=== PATIENT | female | born 1955 | race Caucasian/White ===

== ENCOUNTER 2020-03-15 11:12 | Emergency (ER) | payer OTHER ==
[~2020-03-15] VITALS: Ht 172.7 cm; Wt 68.0 kg
[2020-03-15 11:27] VITALS: Ht 172.7 cm; Wt 68.0 kg
[2020-03-15 11:57] LABS: BASOPHIL % 0.1 % (0-2)
[2020-03-15 12:01] LABS: PLATELET COUNT 430 x10^3mcL (130-400); RED CELL DISTRIBUTION WIDTH 22.3 % (11.5-14.5)
[2020-03-15 12:11] LABS: CALCIUM 7.8 mg/dL (8.5-10.1); CARBON DIOXIDE 27.3 mmol/L (21-32); CHLORIDE SERUM 105 mmol/L (98-107); CREATININE SERUM 0.5 mg/dL (0.6-1.0); GFR1 > 60 mL/min; GLUCOSE SERUM 87 mg/dL (74-106); POTASSIUM SERUM 3.2 mmol/L (3.5-5.1); SODIUM SERUM 138 mmol/L (136-145)
[2020-03-15 12:16] LABS: ALBUMIN 1.3 g/dL (3.4-5.0); ALKALINE PHOSPHATASE 677 U/L (46-116); ALT/SGPT 43 U/L (14-59); AST/SGOT 65 U/L (15-37); BILIRUBIN TOTAL 1.19 mg/dL (0.20-1.00); TOTAL PROTEIN, SERUM 6.2 g/dL (6.4-8.2)
[2020-03-15 12:45] LABS: rbc morphology (normal/abnorm) ABNORMAL (NORMAL)
[2020-03-15 19:09] VITALS: BP 111/57
== END 2020-03-15 19:09 | disposition home or self-care (01) ==
LOC: ED 11:12
PROVIDERS: Student in an Organized Health Care Education/Training Program
DX: E16.2 Hypoglycemia, unspecified (principal); I10 Essential (primary) hypertension; Z85.05 Personal history of malignant neoplasm of liver; Z90.49 Acquired absence of other specified parts of digestive tract
CPT/HCPCS: 82962; J7030

== ENCOUNTER 2020-06-03 12:44 | Inpatient (IN) | payer OTHER ==
[~2020-06-03] VITALS: Ht 157.5 cm; Wt 54.4 kg
[~2020-06-03 12:44] MED LIST: CYMBALTA20 M1 PO; NOVAPLUS L40 MG/0.4 SC; NOVAPLUS ZOSYN1 PD1 IV; TOPIRAMATE100 M1 PO
[2020-06-03 12:46] VITALS: Ht 157.5 cm; Wt 54.4 kg
[2020-06-03] MEDS ORDERED: NOVOLOG FLEX100 U/M1 SQ (12:59)
[2020-06-03] MEDS ORDERED: BASAGLAR K100 UNIT/1 SQ (13:00)
[2020-06-03] MEDS ORDERED: FEROSUL325 MG PO (13:01)
[2020-06-03] MEDS ORDERED: DULOXETINE HYDR20 MG PO (13:02)
[2020-06-03] MEDS ORDERED: ELIQUIS5 MG PO (13:03)
[2020-06-03] MEDS ORDERED: DURAGESIC1 EAC1 TD (13:07)
[2020-06-03] MEDS ORDERED: LIDODERM51 TD (13:08)
[2020-06-03] MEDS ORDERED: MEGL PO (13:09)
[2020-06-03] MEDS ORDERED: MULTI-VITAMIN W1 TAB PO (13:10)
[2020-06-03] MEDS ORDERED: PANTOPRAZOLE SO20 M1 PO (13:10)
[2020-06-03] MEDS ORDERED: METHADONE HC10 MG/M3 PO (13:10)
[2020-06-03] MEDS ORDERED: MIRALAX17 GM PO (13:11)
[2020-06-03] MEDS ORDERED: SENNA8.6 M2 PO (13:11)
[2020-06-03] MEDS ORDERED: ARGINAID POWDE1 EACH PO (13:13)
[2020-06-03] MEDS ORDERED: ZINC SULFATE220 M2 PO (13:13)
[2020-06-03] MEDS ORDERED: DULCOLAX10 M1 PR (13:14)
[2020-06-03] MEDS ORDERED: GLUCAGON EMERGEN1 MG IM (13:15)
[2020-06-03] MEDS ORDERED: MOM PO (13:16)
[2020-06-03] MEDS ORDERED: DEX4 GLUCOSE15 GM PO (13:16)
[2020-06-03] MEDS ORDERED: VENELEX TOP (13:17)
[2020-06-03] MEDS ORDERED: DILAUDID2 MG PO (13:17)
[2020-06-03] MEDS ORDERED: DESITIN113 GM TOP (13:18)
[2020-06-03 13:27] LABS: BASOPHIL % 0.2 % (0.2-1.3)
[2020-06-03 13:31] LABS: PLATELET COUNT 409 x10^3mcL (179-408); RED CELL DISTRIBUTION WIDTH 16.4 % (12.3-17.7)
[2020-06-03 13:32] LABS: rbc morphology (normal/abnorm) ABNORMAL (NORMAL)
[2020-06-03 13:38] LABS: CALCIUM 7.1 mg/dL (8.5-10.1); CARBON DIOXIDE 16.2 mmol/L (21-32); CHLORIDE SERUM 106 mmol/L (98-107); CREATININE SERUM 1.1 mg/dL (0.6-1.0); GFR1 53 mL/min; GLUCOSE SERUM 96 mg/dL (74-106); POTASSIUM SERUM 3.8 mmol/L (3.5-5.1); SODIUM SERUM 134 mmol/L (136-145)
[2020-06-03 13:43] LABS: ALKALINE PHOSPHATASE 168 U/L (46-116); ALT/SGPT 18 U/L (14-59); AST/SGOT 39 U/L (15-37); BILIRUBIN TOTAL 2.32 mg/dL (0.20-1.00)
[2020-06-03 14:02] LABS: ALBUMIN 0.7 g/dL (3.4-5.0); TOTAL PROTEIN, SERUM 4.6 g/dL (6.4-8.2)
[2020-06-03 15:43] LABS: UA SPECIFIC GRAVITY 1.025 (1.005-1.035); microscopic required? YES; urine erythrocyte 1+ (NEGATIVE)
[2020-06-03] MEDS ORDERED: XELODA150 MG PO (16:24)
[2020-06-03 20:28] LABS: T3 TOTAL 0.41 ng/mL
[2020-06-03 20:56] LABS: CHOLESTEROL/HDL RATIO 15.8
[2020-06-03 21:00] LABS: FREE T4 1.07 ng/dL (0.76-1.46); FREE THYROXINE INDEX 2.1 ug/dL (1.4-4.5); T4(THYROXINE) 5.3 ug/dL (4.7-13.3)
[2020-06-04] MEDS ORDERED: LOVENOX30 MG/0.3 (04:45)
[2020-06-04 09:57] LABS: BASOPHIL % 0.2 % (0.2-1.3)
[2020-06-04 10:26] LABS: CALCIUM 7.6 mg/dL (8.5-10.1); CARBON DIOXIDE 16.1 mmol/L (21-32); CREATININE SERUM 1.2 mg/dL (0.6-1.0); MAGNESIUM 1.7 mg/dL (1.8-2.4); PHOSPHOROUS 6.2 mg/dL (2.5-4.9); POTASSIUM SERUM 4.3 mmol/L (3.5-5.1)
[2020-06-04 10:38] LABS: RED CELL DISTRIBUTION WIDTH 18.6 % (12.3-17.7)
[2020-06-04 10:40] LABS: PLATELET COUNT 618 x10^3mcL (179-408)
[2020-06-04 14:23] VITALS: BP 128/64
[2020-06-05 08:05] LABS: BASOPHIL % 0 % (0.2-1.3); PLATELET COUNT 533 x10^3mcL (179-408); RED CELL DISTRIBUTION WIDTH 16.7 % (12.3-17.7)
[2020-06-05 08:36] LABS: CALCIUM 7.5 mg/dL (8.5-10.1); CARBON DIOXIDE 14.8 mmol/L (21-32); CREATININE SERUM 1.3 mg/dL (0.6-1.0); MAGNESIUM 1.7 mg/dL (1.8-2.4); PHOSPHOROUS 6.2 mg/dL (2.5-4.9); POTASSIUM SERUM 4.4 mmol/L (3.5-5.1)
[2020-06-07 12:41] VITALS: BP 63/31
== END 2020-06-07 18:30 | DRG 871 ==
LOC: ED 12:44 → DU 19:11 → IC 19:11
PROVIDERS: Emergency Medicine; ADMIT Family Medicine; ATTEND Family Medicine
DX: A41.9 Sepsis, unspecified organism (principal); J69.0 Pneumonitis due to inhalation of food and vomit; J96.01 Acute respiratory failure with hypoxia; E43 Unspecified severe protein-calorie malnutrition; N17.0 Acute kidney failure with tubular necrosis; R65.21 Severe sepsis with septic shock; G93.41 Metabolic encephalopathy; C25.9 Malignant neoplasm of pancreas, unspecified; C78.7 Secondary malignant neoplasm of liver and intrahepatic bile duct; E87.1 Hypo-osmolality and hyponatremia; D68.69 Other thrombophilia; R64 Cachexia; I82.402 Acute embolism and thrombosis of unspecified deep veins of left lower extremity; Z20.822 Contact with and (suspected) exposure to COVID-19; Z66 Do not resuscitate; Z51.5 Encounter for palliative care; I48.0 Paroxysmal atrial fibrillation; F20.9 Schizophrenia, unspecified; E11.40 Type 2 diabetes mellitus with diabetic neuropathy, unspecified; I10 Essential (primary) hypertension; F32.9 Major depressive disorder, single episode, unspecified; M79.7 Fibromyalgia; R57.1 Hypovolemic shock; R74.01 Elevation of levels of liver transaminase levels; D64.9 Anemia, unspecified; D47.3 Essential (hemorrhagic) thrombocythemia; Z68.21 Body mass index [BMI] 21.0-21.9, adult; Z90.49 Acquired absence of other specified parts of digestive tract; Z79.01 Long term (current) use of anticoagulants; Z79.899 Other long term (current) drug therapy; E83.51 Hypocalcemia
CPT/HCPCS: 36600; 82962; 84439; A4628; G0378; J0456; J0696; J1100; J1642; J1650; J1720; J2270; J2310; J2405; J2543; J3370; J3490; J7030; J7050; J7060; Q9967; U0003